=== PATIENT | male | born 1935 | race Caucasian/White ===

== ENCOUNTER → 2017-03-01 | Outpatient (CLI) | payer MEDICARE ==
--- NOTE | 2017-03-01 14:48 | KCIC ---
CHEST PA LATERAL History: Shortness of air the last few months, history of COPD, former smoker Comparison: None. Findings: There is emphysema. There is no dependent pleural fluid or pneumothorax. Heart size is within normal limits. There is linear likely atelectasis or fibrotic change of the left lung base. Impression: 1. There is emphysema. There is no lobar infiltrate. CT would be more sensitive for detection of pulmonary nodules. Electronically signed by: Grayson Hollins MD (03/01/2017 2:45 PM) [id number]
== END | disposition home or self-care (01) ==
LOC: KCIC 13:29
PROVIDERS: ATTEND Internal Medicine Pulmonary Disease
DX: J44.9 Chronic obstructive pulmonary disease, unspecified (principal); Z87.891 Personal history of nicotine dependence
CPT/HCPCS: 71020

== ENCOUNTER 2020-12-02 03:09 | Inpatient (IN) | payer MEDICARE ==
[~2020-12-02] VITALS: Ht 182.9 cm; Wt 73.2 kg
[2020-12-02 03:34] LABS: BASO % 0 % (0-3); EOS # 2.3 x10^3/uL (0.0-0.7); EOS % 12 % (0-3); HEMATOCRIT 39.5 % (39.0-53.0); HEMOGLOBIN 12.8 g/dL (13.0-17.5); LYMPH # 1.3 x10^3/uL (1.0-4.8); LYMPH % 7 % (24-48); MEAN CORPUSCULAR HEMOGLOBIN 29 pg (25-35); MEAN CORPUSCULAR HGB CONC 32 g/dL (31-37); MEAN CORPUSCULAR VOLUME 89 fL (79-100); MONO # 1.3 x10^3/uL (0.0-1.1); MONO % 7 % (0-9); NEUT # 13.7 x10^3/uL (1.8-7.7); NEUT % 74 % (31-73); PLATELET COUNT 247 x10^3/uL (140-400); RED BLOOD COUNT 4.45 x10^6/uL (4.30-5.70); RED CELL DISTRIBUTION WIDTH 14.3 % (11.5-14.5); WHITE BLOOD COUNT 18.6 x10^3/uL (4.0-11.0)
[2020-12-02] MEDS ORDERED: ALBU2.5V14 NEB (03:43)
[2020-12-02] MEDS ORDERED: GLIP5TAB10 PO (03:43)
[2020-12-02] MEDS ORDERED: METF500T16 PO (03:43)
[2020-12-02 03:50] LABS: CALCIUM 9.5 mg/dL (8.5-10.1); CREATININE 0.9 mg/dL (0.7-1.3); POTASSIUM 4.5 mmol/L (3.5-5.1)
[2020-12-02 03:52] LABS: ALBUMIN 4.2 g/dL (3.4-5.0); ALBUMIN/GLOBULIN RATIO 1.2 (1.0-1.7); MAGNESIUM 1.8 mg/dL (1.8-2.4); TOTAL BILIRUBIN 0.5 mg/dL (0.2-1.0); TOTAL PROTEIN 7.7 g/dL (6.4-8.2)
--- NOTE | 2020-12-02 03:54 | RAD ---
XR CHEST 1V History: Reason: Chest pain Comparison: March 01, 2017 Findings: Hyperinflation with emphysematous changes. No consolidation or pleural effusion. No pneumothorax. Nor mal heart size. Prior granulomatous disease within the chest. Impression: 1. Hyperinflation with emphysematous changes. No new consolidation. Electronically signed by: Carlos Laguerre DO (12/02/2020 3:52 AM) [facility] [place]
--- NOTE | 2020-12-02 04:22 | PHYS DOC ---
General Adult EDM: Chief Complaint: CHEST PAIN HPI: HPI: 85 yo M past medical history of COPD on 3 L nasal cannula and diabetes, presents the ED with complaints of "aching," nonradiating chest pain that started briefly just prior to ED arrival. Reports no associated nausea, vomiting, fever or dyspnea. No h/o CAD. Review of Systems: Review of Systems: Constitutional: Denies fever or chills. [] Eyes: Denies change in visual acuity. [] HENT: Denies nasal congestion or sore throat. [] Respiratory: Denies cough or shortness of breath. [] Cardiovascular: Denies syncope or edema. [] GI: Denies nausea, vomiting, Musculoskeletal: Denies joint pain or lower extremity swelling Integument: Denies rash or diaphoresis Neurologic: Denies headache, focal weakness or sensory changes. [] Endocrine: Denies polyuria or polydipsia. [] Lymphatic: Denies swollen glands. [] Psychiatric: Denies depression or anxiety. [] Heart Score: C/O Chest Pain: Yes HEART Score for Chest Pain: HEART Score for Chest Pain Response (Comments) Value History Slighlty/Non-Suspicious 0 ECG Nonspecific Repolarizatio 1 Age > 65 2 Risk Factors 1 or 2 Risk Factors 1 Troponin < Normal Limit 0 Total 4 Risk Factors: Risk Factors: DM, Current or recent (<one month) smoker, HTN, HLP, family history of CAD, obesity. Risk Scores: Score 0 - 3: 2.5% MACE over next 6 weeks - Discharge Home Score 4 - 6: 20.3% MACE over next 6 weeks - Admit for Clinical Observation Score 7 - 10: 72.7% MACE over next 6 weeks - Early Invasive Strategies Allergies: Allergies: Allergies Coded Allergies Type Severity Reaction Last Updated Verified No Known Drug Allergies 12/02/20 No Physical Exam: PE: Constitutional: Well developed, well nourished, no acute distress, non-toxic appearance. HENT: Normocephalic, atraumatic, Eyes: EOMI, conjunctiva normal, no discharge. Neck: Normal range of motion, supple, Cardiovascular: S1/2 present, regular rhythm Lungs & Thorax: Speaking in full sentences, bilateral equal chest rise, no tachypnea or increased work of breathing, on 3L NC Abdomen: soft, no tenderness, Skin: Warm, dry, Extremities: No tenderness, no cyanosis, Neurologic: Alert and oriented X 3, no focal deficits noted. [] Psychologic: Normal mood, calm affect Current Patient Data: Labs: Laboratory Tests Test 12/02/20 03:25 White Blood Count 18.6 x10^3/uL (4.0-11.0) H Red Blood Count 4.45 x10^6/uL (4.30-5.70) Hemoglobin 12.8 g/dL (13.0-17.5) L Hematocrit 39.5 % (39.0-53.0) Mean Corpuscular Volume 89 fL (79-100) Mean Corpuscular Hemoglobin 29 pg (25-35) Mean Corpuscular Hemoglobin Concent 32 g/dL (31-37) Red Cell Distribution Width 14.3 % (11.5-14.5) Platelet Count 247 x10^3/uL (140-400) Neutrophils (%) (Auto) 74 % (31-73) H Lymphocytes (%) (Auto) 7 % (24-48) L Monocytes (%) (Auto) 7 % (0-9) Eosinophils (%) (Auto) 12 % (0-3) H Basophils (%) (Auto) 0 % (0-3) Neutrophils # (Auto) 13.7 x10^3/uL (1.8-7.7) H Lymphocytes # (Auto) 1.3 x10^3/uL (1.0-4.8) Monocytes # (Auto) 1.3 x10^3/uL (0.0-1.1) H Eosinophils # (Auto) 2.3 x10^3/uL (0.0-0.7) H Basophils # (Auto) 0.0 x10^3/uL (0.0-0.2) Platelet Estimate Pending Sodium Level 140 mmol/L (136-145) Potassium Level 4.5 mmol/L (3.5-5.1) Chloride Level 99 mmol/L (98-107) Carbon Dioxide Level 34 mmol/L (21-32) H Anion Gap 7 (6-14) Blood Urea Nitrogen 33 mg/dL (8-26) H Creatinine 0.9 mg/dL (0.7-1.3) Estimated GFR (Cockcroft-Gault) 80.0 BUN/Creatinine Ratio 37 (6-20) H Glucose Level 141 mg/dL (70-99) H Calcium Level 9.5 mg/dL (8.5-10.1) Magnesium Level 1.8 mg/dL (1.8-2.4) Total Bilirubin 0.5 mg/dL (0.2-1.0) Aspartate Amino Transferase (AST) 21 U/L (15-37) Alanine Aminotransferase (ALT) 16 U/L (16-63) Alkaline Phosphatase 99 U/L (46-116) Troponin I Quantitative < 0.017 ng/mL (0.000-0.055) NH-Eja-U-Type Natriuretic Peptide 183 pg/mL (0-449) Total Protein 7.7 g/dL (6.4-8.2) Albumin 4.2 g/dL (3.4-5.0) Albumin/Globulin Ratio 1.2 (1.0-1.7) Lipase 20 U/L (73-393) L Laboratory Tests 12/02/20 03:25 Laboratory Tests 12/02/20 03:25 EKG: EKG: EKG with sinus rhythm, QTC prolonged 509, incomplete right bundle branch block, T wave inversion V1 through V3 which could represent strain, no obvious ST elevations or ST depressions Radiology/Procedures: Radiology/Procedures: IMAGING REPORT Signed PATIENT: JENS LEO PACCOUNT: [id number] : 1935 LOCATION: ER AGE: 85 SEX: M EXAM STATUS: REG ER ORD. PHYSICIAN: HAYLIE GOLDMAN DO REASON: cp PROCEDURE: PORTABLE CHEST 1V XR CHEST 1V History: Reason: Chest pain Comparison: March 01, 2017 Findings: Hyperinflation with emphysematous changes. No consolidation or pleural effusion. No pneumothorax. Normal heart size. Prior granulomatous disease within the chest. Impression: 1. Hyperinflation with emphysematous changes. No new consolidation. Electronically signed by: Carlos Laguerre DO (12/02/2020 3:52 AM) [facility] DICTATED and SIGNED BY: CARLOS LAGUERRE DO DATE: 12/02/20 [id number] 0 Course & Med Decision Making: Course & Med Decision Making Pertinent Labs and Imaging studies reviewed. (See chart for details) Concern for atypical chest pain and moderate risk patient, onset just prior to ED arrival. Elevated D-dimer. CTA of the chest pending. Urinalysis pending given undifferentiated leukocytosis. Due to shift change patient was signed out to oncoming physician Dr. Agarwal for further medical management disposition. Shaan Disclaimer: Shaan Disclaimer: This electronic medical record was generated, in whole or in part, using a voice recognition dictation system. Departure Departure Referrals: LAISHA GRANADOS MD (PCP) HAYLIE GOLDMAN DO Dec 02, 2020 04:22
[2020-12-02 04:32] LABS: PROTHROMBIN TIME PATIENT 13.1 SEC (11.7-14.0)
[2020-12-02 04:51] LABS: D-DIMER 3.68 ug/mlFEU (0.00-0.50)
[2020-12-02 05:17] LABS: % EOS 18 % (0-5); % LYMPHS 5 % (24-48); % MONOS 10 % (0-10); % SEGS 67 % (35-66)
[2020-12-02 05:18] LABS: PLT ESTIMATE ADEQUATE (ADEQUATE)
--- NOTE | 2020-12-02 06:07 | EKG ---
[facility] [address] [place] [address] Test Date: 2020-12-02 Test Time: 03:12:00 Pat Name: JENS LEO Department: Room: Gender: M Bead Filler: : 1935 Requested By: HAYLIE GOLDMAN Order Number: [id number] Reading MD: Measurements Intervals [place] Rate: 104 P: -90 SC: 174 QRS: 64 QRSD: 116 T: 59 QT: 382 QTc: 509 Interpretive Statements SUPRAVENTRICULAR RHYTHM RVH WITH REPOLARIZATION ABNORMALITY QRS(T) CONTOUR ABNORMALITY CONSISTENT WITH ANTEROSEPTAL INFARCT AGE UNDETERMINED ABNORMAL ECG RI6.02 No previous ECG available for comparison
[2020-12-02] MEDS ORDERED: IOHEXOL 350 MG/ML 100 ML VIAL. IV ONE (06:30)
[2020-12-02] MEDS ORDERED: CONTRAST GIVEN. MC PRN (06:45)
[2020-12-02 06:57] LABS: BILIRUBIN,URINE NEGATIVE (NEG); CLARITY,URINE CLEAR; COLOR,URINE YELLOW; NITRITE,URINE NEGATIVE (NEG); PH,URINE 5.5 (<5.0-8.0); PROTEIN,URINE NEGATIVE (NEG-TRACE); UROBILINOGEN,URINE 0.2 mg/dL (0.2 mg/dL)
[2020-12-02 07:20] LABS: BACTERIA,URINE 0 /HPF (0-FEW); RBC,URINE 0 /HPF (0-2); WBC,URINE 0 /HPF (0-4)
--- NOTE | 2020-12-02 07:35 | RAD ---
EXAMINATION: CTA CHEST CLINICAL HISTORY: Chest pain concerning for PE Technique: Spiral CT acquisition of the chest from the thoracic inlet to the upper abdomen following IV contrast with coronal and sagittal reformatted images also provided for review. 3D maximum intensi ty projection images also performed. CT Dose Reduction Employed: One or more of the following individualized dose reduction techniques wer e utilized for this examination: 1. Automated exposure control 2. Adjustment of the mA and/or kV ac cording to patient size 3. Use of iterative reconstruction technique. Comparison: Chest radiograph same day FINDINGS: Pulmonary Vasculature: No evidence of main, lobar, segmental or proximal segmental pulmonary arterial thrombus. Lung Parenchyma, Pleura, and Airways: Lower lobe predominant reticulation and mild patchy opacities, greater on the right and likely due to scarring with subsegmental atelectasis but superimposed infect ion is not excluded. Somewhat more nodular opacity measuring up to 6 mm in the lateral right lower lo be (series 3 image 109). Multiple sub-4 mm solid pulmonary nodules, some of which are calcified and l ikely related to old granulomatous disease but the noncalcified nodules are nonspecific. Emphysema. N o pleural effusion. Central airways patent. Lower Neck, Lymph Nodes, and Mediastinum: Visualized thyroid gland within normal limits. Multiple bor derline to mildly enlarged upper and lower paratracheal lymph nodes measuring up to 13 mm in short ax is, greater on the right. No axillary lymphadenopathy. Heart, Pericardium, and Thoracic Vessels: Normal heart size. Mild coronary atherosclerotic ossificati on, incompletely evaluated. Aortic atherosclerotic calcification without aneurysm. Bones and Soft Tissues: Degenerative changes in the thoracic spine. Upper Abdomen: Old calcified granulomas in the liver and spleen. IMPRESSION: No evidence of pulmonary embolus. Emphysema with likely chronic findings as described, however, superimposed infection is not entirely excluded on the right. Borderline and mildly enlarged paratracheal lymph nodes, possibly reactive. Nonspecific 6 mm nodular opacity in the right lower lobe and multiple sub-4 mm pulmonary nodules as d escribed, recommend follow-up CT chest in 6 months to evaluate for stability/resolution of the larger nodular opacity. Electronically signed by: Mario Das DO (12/02/2020 7:33 AM) [id number]
[2020-12-02] MEDS ORDERED: ACETAMINOPHEN 325 MG TABLET. PO PRN ×2 (08:30→23:45)
[2020-12-02] MEDS ORDERED: ONDANSETRON PF 4 MG/2 ML VIAL. IV PRN (08:30)
[2020-12-02] MEDS ORDERED: ASPI-886 PO (10:32)
[2020-12-02] MEDS ORDERED: SERT-266 PO (10:32)
[2020-12-02] MEDS ORDERED: VIT1CAPS17 PO (10:32)
[2020-12-02] MEDS ORDERED: BENA1TAB42 PO (10:32)
[2020-12-02] MEDS ORDERED: IPRA3AMP29 NEB (10:32)
[2020-12-02] MEDS ORDERED: GLIM1TAB7 PO (10:34)
[2020-12-02] MEDS ORDERED: AMLO-186 PO (10:34)
[2020-12-02 11:00] VITALS: BP 146/71
[2020-12-02] MEDS: IPRATRPIUM/ALBUTEROL 0.5/2.5MG 3 ML NEBU. NEB SCH ×3 (11:15→21:00)
[2020-12-02] MEDS ORDERED: methylPREDNISolone SOD SUCC PF 125 MG/2 ML VIAL. IV ONE (13:00)
[2020-12-02] MEDS: cefTRIAXone IV Push 1 GM VIAL. IVP SCH (13:21)
--- NOTE | 2020-12-02 13:29 | PDOC1 ---
History and Physical Date of Admission Date of Admission DATE: 12/02/20 TIME: 13:29 History of Present Illness History of Present Illness Mr. Rodriguez is a 85 yo M past medical history of COPD on 3 L nasal cannula and diabetes, admit from ER with acute dyspnea, cough and aches. Reports no associated nausea, vomiting, fever or dyspnea. No h/o CAD. Family History Family History: No Significant Social History Smoke: Quit ALCOHOL: none Drugs: None Current Medications Current Medications Current Medications Iohexol (Omnipaque 350 Mg/ml) 100 ml 1X ONCE IV Last administered on 12/02/20at 07:00; Start 12/02/20 at 06:30; Stop 12/02/20 at 06:31; Status DC Info (CONTRAST GIVEN -- Rx MONITORING) 1 each PRN DAILY PRN MC SEE COMMENTS; Start 12/02/20 at 06:45; Stop 12/04/20 at 06:44 Levofloxacin/ Dextrose 150 ml @ 100 mls/hr 1X ONCE IV Last administered on 12/02/20at 09:10; Start 12/02/20 at 08:30; Stop 12/02/20 at 09:59; Status DC Ondansetron HCl (Zofran) 4 mg PRN Q8HRS PRN IV NAUSEA/VOMITING; Start 12/02/20 at 08:30; Stop 12/03/20 at 08:29 Acetaminophen (Tylenol) 650 mg PRN Q4HRS PRN PO FEVER > 100.3'F; Start 12/02/20 at 08:30; Stop 12/03/20 at 08:29 Albuterol/ Ipratropium (Duoneb) 3 ml RTQID NEB Last administered on 12/02/20at 11:15; Start 12/02/20 at 12:00; Stop 12/03/20 at 11:59 Ceftriaxone Sodium (Rocephin) 1 gm Q24H IVP ; Start 12/02/20 at 14:00 Azithromycin 500 mg/Sodium Chloride 250 ml @ 250 mls/hr Q24H IV ; Start 12/02/20 at 14:00; Stop 12/05/20 at 13:59 Methylprednisolone Sodium Succinate (SOLU-Medrol 125MG VIAL) 62.5 mg Q12HR IV ; Start 12/02/20 at 21:00 Methylprednisolone Sodium Succinate (SOLU-Medrol 125MG VIAL) 125 mg 1X ONCE IV ; Start 12/02/20 at 13:00; Stop 12/02/20 at 13:01; Status DC Enoxaparin Sodium (Lovenox 40mg Syringe) 40 mg Q24H SQ ; Start 12/02/20 at 16:00 Active Scripts Active Reported Lotensin Hct 10-12.5 mg Tablet (Benazepril/Hydrochlorothiazide) 1 Each Tablet 1 Each PO DAILY Sertraline Hcl 25 Mg Tablet 25 Mg PO DAILY Aspirin Ec (Aspirin) 81 Mg Tablet.dr 1 Tab PO DAILY Preservision Lutein Softgel (Vit C/Jase Ac/Lut/Copper/Znox) 1 Each Capsule 1 Cap PO DAILY 30 Days Duoneb 0.5-3(2.5) Mg/3 Ml (Albuterol/Ipratropium) 3 Ml Ampul.neb 3 Ml NEB QID Metformin Hcl 500 Mg Tablet 1,000 Mg PO BIDWMEALS Allergies Allergies: Coded Allergies: No Known Drug Allergies (Unverified , 12/02/20) ROS General: YES: Chills, Fatigue PSYCHOLOGICAL ROS: No: Anxiety, Behavioral Disorder, Concentration difficultie, Decreased libido, Depression, Disorientation, Hallucinations, Hostility, Irritablity, Memory difficulties, Mood Swings, Obsessive thoughts, Physical abuse, Sexual abuse, Sleep disturbances, Suicidal ideation, Other Eyes: No Blurry vision, No Decreased vision, No Double vision, No Dry eyes, No Excessive tearing, No Eye Pain, No Itchy Eyes, No Loss of vision, No Photophobia, No Scotomata, No Uses contacts, No Uses glasses, No Other HEENT: No: Heacaches, Visual Changes, Hearing change, Nasal congestion, Nasal discharge, Oral lesions, Sinus pain, Sore Throat, Epistaxis, Sneezing, Snoring, Tinnitus, Vertigo, Vocal changes, Other Respiratory: YES: Cough, Shortness of breath, SOB with excertion, Sputum Changes, Tachypnea; No: Hemoptysis, Orthopnea, Pleuritic Pain, Stridor, Wheezing, Other Cardiovascular: No Chest Pain, No Palpitations, No Orthopnea, No Paroxysmal Noc. Dyspnea, No Edema, No Lt Headedness, No Other Gastrointestinal: Yes Nausea Genitourinary: No Dysuria, No Frequency, No Incontinence, No Hematuria, No Retention, No Discharge, No Urgency, No Pain, No Flank Pain, No Other, No , No , No , No , No , No , No Musculoskeletal: Yes Joint Stiffness Neurological: No Behavorial Changes, No Bowel/Bladder ControlChng, No Confusion, No Dizziness, No Gait Disturbance, No Headaches, No Impaired Coord/balance, No Memory Loss, No Numbness/Tingling, No Seizures, No Speech Problems, No Tremors, No Visual Changes, No Weakness, No Other Skin: Yes Dry Skin; No Eczema, No Hair Changes, No Lumps, No Mole Changes, No Mottling, No Nail Changes, No Pruritus, No Rash, No Skin Lesion Changes, No Other, No Acne Physical Exam General: Alert, Cooperative, mild distress HEENT: PERRLA, EOMI Lungs: Other (limited volume, with end wheeze, no rhonchi) Heart: RRR, no murmurs Abdomen: Normal bowel sounds, Soft Extremities: No edema Skin: No rashes, No significant lesion Neuro: Normal speech, Normal tone, Cranial nerves 3-12 NL Psych/Mental Status: Mental status NL, Mood NL Vitals Vitals Vital Signs Date Time Temp Pulse Resp B/P (MAP) Pulse Ox O2 Delivery O2 Flow Rate FiO2 12/02/20 11:15 99 Nasal Cannula 2.0 12/02/20 11:00 98.1 108 18 146/71 (96) 98.1 Labs Labs Laboratory Tests Test 12/02/20 03:25 12/02/20 04:05 12/02/20 05:25 12/02/20 06:50 White Blood Count 18.6 x10^3/uL (4.0-11.0) Red Blood Count 4.45 x10^6/uL (4.30-5.70) Hemoglobin 12.8 g/dL (13.0-17.5) Hematocrit 39.5 % (39.0-53.0) Mean Corpuscular Volume 89 fL (79-100) Mean Corpuscular Hemoglobin 29 pg (25-35) Mean Corpuscular Hemoglobin Concent 32 g/dL (31-37) Red Cell Distribution Width 14.3 % (11.5-14.5) Platelet Count 247 x10^3/uL (140-400) Neutrophils (%) (Auto) 74 % (31-73) Lymphocytes (%) (Auto) 7 % (24-48) Monocytes (%) (Auto) 7 % (0-9) Eosinophils (%) (Auto) 12 % (0-3) Basophils (%) (Auto) 0 % (0-3) Neutrophils # (Auto) 13.7 x10^3/uL (1.8-7.7) Lymphocytes # (Auto) 1.3 x10^3/uL (1.0-4.8) Monocytes # (Auto) 1.3 x10^3/uL (0.0-1.1) Eosinophils # (Auto) 2.3 x10^3/uL (0.0-0.7) Basophils # (Auto) 0.0 x10^3/uL (0.0-0.2) Segmented Neutrophils % 67 % (35-66) Lymphocytes % 5 % (24-48) Monocytes % 10 % (0-10) Eosinophils % 18 % (0-5) Platelet Estimate Adequate (ADEQUATE) Sodium Level 140 mmol/L (136-145) Potassium Level 4.5 mmol/L (3.5-5.1) Chloride Level 99 mmol/L (98-107) Carbon Dioxide Level 34 mmol/L (21-32) Anion Gap 7 (6-14) Blood Urea Nitrogen 33 mg/dL (8-26) Creatinine 0.9 mg/dL (0.7-1.3) Estimated GFR (Cockcroft-Gault) 80.0 BUN/Creatinine Ratio 37 (6-20) Glucose Level 141 mg/dL (70-99) Calcium Level 9.5 mg/dL (8.5-10.1) Magnesium Level 1.8 mg/dL (1.8-2.4) Total Bilirubin 0.5 mg/dL (0.2-1.0) Aspartate Amino Transf (AST/SGOT) 21 U/L (15-37) Alanine Aminotransferase (ALT/SGPT) 16 U/L (16-63) Alkaline Phosphatase 99 U/L (46-116) Troponin I Quantitative < 0.017 ng/mL (0.000-0.055) < 0.017 ng/mL (0.000-0.055) PJ-Cyn-J-Type Natriuretic Peptide 183 pg/mL (0-449) Total Protein 7.7 g/dL (6.4-8.2) Albumin 4.2 g/dL (3.4-5.0) Albumin/Globulin Ratio 1.2 (1.0-1.7) Lipase 20 U/L (73-393) Prothrombin Time 13.1 SEC (11.7-14.0) Prothromb Time International Ratio 1.0 (0.8-1.1) D-Dimer (Solange) 3.68 ug/mlFEU (0.00-0.50) Urine Collection Type Void Urine Color Yellow Urine Clarity Clear Urine pH 5.5 (<5.0-8.0) Urine Specific Arley 1.025 (1.000-1.030) Urine Protein Negative mg/dL (NEG-TRACE) Urine Glucose (UA) Negative mg/dL (NEG) Urine Ketones (Stick) Trace mg/dL (NEG) Urine Blood Negative (NEG) Urine Nitrite Negative (NEG) Urine Bilirubin Negative (NEG) Urine Urobilinogen Dipstick 0.2 mg/dL (0.2 mg/dL) Urine Leukocyte Esterase Negative (NEG) Urine RBC 0 /HPF (0-2) Urine WBC 0 /HPF (0-4) Urine Squamous Epithelial Cells Occ /LPF Urine Bacteria 0 /HPF (0-FEW) Urine Mucus Mod /LPF Test 12/02/20 08:01 12/02/20 11:20 Troponin I Quantitative < 0.017 ng/mL (0.000-0.055) < 0.017 ng/mL (0.000-0.055) Laboratory Tests Test 12/02/20 03:25 12/02/20 04:05 12/02/20 05:25 12/02/20 06:50 White Blood Count 18.6 x10^3/uL (4.0-11.0) Red Blood Count 4.45 x10^6/uL (4.30-5.70) Hemoglobin 12.8 g/dL (13.0-17.5) Hematocrit 39.5 % (39.0-53.0) Mean Corpuscular Volume 89 fL (79-100) Mean Corpuscular Hemoglobin 29 pg (25-35) Mean Corpuscular Hemoglobin Concent 32 g/dL (31-37) Red Cell Distribution Width 14.3 % (11.5-14.5) Platelet Count 247 x10^3/uL (140-400) Neutrophils (%) (Auto) 74 % (31-73) Lymphocytes (%) (Auto) 7 % (24-48) Monocytes (%) (Auto) 7 % (0-9) Eosinophils (%) (Auto) 12 % (0-3) Basophils (%) (Auto) 0 % (0-3) Neutrophils # (Auto) 13.7 x10^3/uL (1.8-7.7) Lymphocytes # (Auto) 1.3 x10^3/uL (1.0-4.8) Monocytes # (Auto) 1.3 x10^3/uL (0.0-1.1) Eosinophils # (Auto) 2.3 x10^3/uL (0.0-0.7) Basophils # (Auto) 0.0 x10^3/uL (0.0-0.2) Segmented Neutrophils % 67 % (35-66) Lymphocytes % 5 % (24-48) Monocytes % 10 % (0-10) Eosinophils % 18 % (0-5) Platelet Estimate Adequate (ADEQUATE) Sodium Level 140 mmol/L (136-145) Potassium Level 4.5 mmol/L (3.5-5.1) Chloride Level 99 mmol/L (98-107) Carbon Dioxide Level 34 mmol/L (21-32) Anion Gap 7 (6-14) Blood Urea Nitrogen 33 mg/dL (8-26) Creatinine 0.9 mg/dL (0.7-1.3) Estimated GFR (Cockcroft-Gault) 80.0 BUN/Creatinine Ratio 37 (6-20) Glucose Level 141 mg/dL (70-99) Calcium Level 9.5 mg/dL (8.5-10.1) Magnesium Level 1.8 mg/dL (1.8-2.4) Total Bilirubin 0.5 mg/dL (0.2-1.0) Aspartate Amino Transf (AST/SGOT) 21 U/L (15-37) Alanine Aminotransferase (ALT/SGPT) 16 U/L (16-63) Alkaline Phosphatase 99 U/L (46-116) Troponin I Quantitative < 0.017 ng/mL (0.000-0.055) < 0.017 ng/mL (0.000-0.055) XU-Dbe-C-Type Natriuretic Peptide 183 pg/mL (0-449) Total Protein 7.7 g/dL (6.4-8.2) Albumin 4.2 g/dL (3.4-5.0) Albumin/Globulin Ratio 1.2 (1.0-1.7) Lipase 20 U/L (73-393) Prothrombin Time 13.1 SEC (11.7-14.0) Prothromb Time International Ratio 1.0 (0.8-1.1) D-Dimer (Solange) 3.68 ug/mlFEU (0.00-0.50) Urine Collection Type Void Urine Color Yellow Urine Clarity Clear Urine pH 5.5 (<5.0-8.0) Urine Specific Arley 1.025 (1.000-1.030) Urine Protein Negative mg/dL (NEG-TRACE) Urine Glucose (UA) Negative mg/dL (NEG) Urine Ketones (Stick) Trace mg/dL (NEG) Urine Blood Negative (NEG) Urine Nitrite Negative (NEG) Urine Bilirubin Negative (NEG) Urine Urobilinogen Dipstick 0.2 mg/dL (0.2 mg/dL) Urine Leukocyte Esterase Negative (NEG) Urine RBC 0 /HPF (0-2) Urine WBC 0 /HPF (0-4) Urine Squamous Epithelial Cells Occ /LPF Urine Bacteria 0 /HPF (0-FEW) Urine Mucus Mod /LPF Test 12/02/20 08:01 12/02/20 11:20 Troponin I Quantitative < 0.017 ng/mL (0.000-0.055) < 0.017 ng/mL (0.000-0.055) VTE Prophylaxis Ordered VTE Prophylaxis Devices: Yes VTE Pharmacological Prophylaxi: Yes Assessment/Plan Assessment/Plan sepsis right-sided pneumonia, suspect gram-negative - broad abx x2, nebs COPD, chronic hypercarbic respiratory failure with acute bronchitis, will geet PULM consult, nebs, steroids, malnutrition, weight loss, htn Dm2 Justifications for Admission Other Justification LULA ALFARO MD Dec 02, 2020 13:29
[2020-12-02] MEDS: AZITHROMYCIN 500 MG in IV NORMAL SALINE 250ML 250 ML IV SCH (13:31)
[2020-12-02] MEDS: ASPIRIN ENTERIC COATED 81 MG TABLET.DR. PO SCH (14:43)
[2020-12-02] MEDS: SERTRALINE 25 MG TABLET. PO SCH (14:43)
[2020-12-02] MEDS: hydroCHLOROthiazide 12.5 MG CAPSULE PO SCH (14:43)
[2020-12-02] MEDS: MULTIVITAMIN I-VITE TABLET. PO SCH (14:43)
[2020-12-02] MEDS: LISINOPRIL 10 MG TABLET PO SCH (14:44)
[2020-12-02 15:00] VITALS: BP 116/59
[2020-12-02] MEDS: ENOXAPARIN 40 MG/0.4 ML SYRINGE. SQ SCH (17:02)
[2020-12-02] MEDS ORDERED: DEXTROSE 50% 25 GM / 50ML DISP.SYRIN. IV PRN (17:30)
[2020-12-02 17:31] LABS: INFLUENZA A PATIENT NEGATIVE (NEGATIVE); INFLUENZA B PATIENT NEGATIVE (NEGATIVE)
[2020-12-02] MEDS: INSULIN LISPRO 300 UNITS/3 ML VIAL. SQ SCH ×2 (18:02→18:03)
[2020-12-02 19:00] VITALS: BP 102/58
[2020-12-02] MEDS: INSULIN GLARGINE SYRINGE. SQ SCH (21:00)
[2020-12-02] MEDS: methylPREDNISolone SOD SUCC PF 125 MG/2 ML VIAL. IV SCH (21:33)
[2020-12-02 23:00] VITALS: BP 109/48
[2020-12-02] MEDS ORDERED: diphenhydrAMINE HCL 25 MG CAPSULE PO PRN (23:15)
--- NOTE | 2020-12-02 23:23 | CONS ---
DATE OF CONSULTATION: 12/02/2020 ATTENDING PHYSICIAN: Dr. Cha Lay. REASON FOR CONSULTATION: The patient is seen in pulmonary consultation at the request of Dr. Lay for shortness of air. HISTORY OF PRESENT ILLNESS: The patient is an 85-year-old with chronic COPD, chronic respiratory failure, normally on 3 liters of oxygen supplementation. He woke up with chest pain and shortness of breath, achiness. His was concerned. He presented to the Emergency Room. His worked up in the Emergency Room, underwent a CT angiogram. CT angiogram revealed no evidence of PE. There was emphysema with chronic changes. There was also superimposed right-sided infiltrate. He has a large paratracheal lymph node. There was also a 6-mm nodular opacity in the right lower lobe. The patient denies fever or chills. He is up to date on COVID-19 vaccination. He has been losing some weight. PAST MEDICAL HISTORY: COPD; diabetes; hypertension; tobacco-dependence in remission, quit in 1991. No prior history of DVT or pulmonary embolism. PAST SURGICAL HISTORY: No recent major surgeries. ALLERGIES: No known drug allergies. SOCIAL HISTORY: He has worked for the [employer] in the past. He is currently retired. Quit tobacco in 1991. Lives with his . REVIEW OF SYSTEMS: CONSTITUTIONAL: No fever or chills. EYES: No change in visual acuity. HENT: No nasal congestion or sore throat. PULMONARY: As indicated above. CARDIOVASCULAR: No chest pain or pressure. GASTROINTESTINAL: No nausea, vomiting, or diarrhea. GENITOURINARY: No dysuria or frequency. MUSCULOSKELETAL: No localized muscle aches or joint pains. SKIN: No new skin rashes. NEUROLOGIC: No headaches, diplopia or blurred vision. Labs were reviewed in the Emergency Department. He was given IV Levaquin. PHYSICAL EXAMINATION: GENERAL: The patient appears to be his stated age, no respiratory distress, currently on 3 liters of oxygen supplementation. HEENT: Eyes: The sclerae were nonicteric. NECK: Jugular venous distention was not elevated. No lymphadenopathy. CHEST: Full expansion. LUNGS: Rales on the right with prolonged expiratory phase and wheezing. CARDIOVASCULAR: Regular rate and rhythm with S1, S2, no S3. ABDOMEN: Soft, nontender, nondistended. EXTREMITIES: No clubbing, cyanosis or edema. LABORATORY DATA: Reviewed. White count was elevated. Hemoglobin and hematocrit were noted. Electrolytes were noted. D-dimer was not elevated. Troponin level was not elevated. BUN and creatinine were normal. IMPRESSION: 1. Abnormal CT chest revealing right-sided infiltrate compatible with pneumonia, suspect gram-negative, possibly gram-positive. 2. Leukocytosis secondary to above. 3. Chronic respiratory failure. 4. Acute exacerbation of chronic obstructive pulmonary disease. 5. Elevated D-dimer, nonspecific. CT angiogram was negative for pulmonary embolism. 6. Mild lymphadenopathy in the paratracheal region along with a 6-mm nodular opacity in the right lower lobe. 7. Weight loss. 8. Hypertension. 9. Type 2 diabetes. 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 PLAN: 1. We will continue current support with IV antibiotics. 2. Nebulized treatments. 3. Steroids. 4. Repeat CT chest in 2 months. 5. Follow up with PCP regarding significant weight loss. There is no evidence of malignancy in the chest at this time. 6. DVT, GI prophylaxis. I do appreciate the privilege in sharing in the patient's care. ANUM/SHELBY DR: Rosie TID: [id number]
[2020-12-03 03:34] VITALS: BP 108/63
[2020-12-03 05:19] LABS: CALCIUM 8.9 mg/dL (8.5-10.1); GFR 70.8
[2020-12-03 07:00] VITALS: BP 101/62
[2020-12-03] MEDS: IPRATRPIUM/ALBUTEROL 0.5/2.5MG 3 ML NEBU. NEB SCH ×4 (07:48→20:26)
[2020-12-03] MEDS: ASPIRIN ENTERIC COATED 81 MG TABLET.DR. PO SCH (08:05)
[2020-12-03] MEDS: LISINOPRIL 10 MG TABLET PO SCH (08:05)
[2020-12-03] MEDS: MULTIVITAMIN I-VITE TABLET. PO SCH (08:06)
[2020-12-03] MEDS: hydroCHLOROthiazide 12.5 MG CAPSULE PO SCH (08:06)
[2020-12-03] MEDS: SERTRALINE 25 MG TABLET. PO SCH (08:06)
[2020-12-03] MEDS: methylPREDNISolone SOD SUCC PF 125 MG/2 ML VIAL. IV SCH ×2 (08:07→21:23)
[2020-12-03] MEDS: INSULIN LISPRO 300 UNITS/3 ML VIAL. SQ SCH ×6 (08:16→17:16)
[2020-12-03 09:14] LABS: BASO % 0 % (0-3); EOS % 0 % (0-3); HEMATOCRIT 37.5 % (39.0-53.0); HEMOGLOBIN 12.3 g/dL (13.0-17.5); LYMPH # 0.6 x10^3/uL (1.0-4.8); LYMPH % 5 % (24-48); MEAN CORPUSCULAR HEMOGLOBIN 29 pg (25-35); MEAN CORPUSCULAR HGB CONC 33 g/dL (31-37); MEAN CORPUSCULAR VOLUME 88 fL (79-100); MONO # 0.4 x10^3/uL (0.0-1.1); MONO % 3 % (0-9); NEUT # 11.3 x10^3/uL (1.8-7.7); NEUT % 92 % (31-73); PLATELET COUNT 234 x10^3/uL (140-400); RED BLOOD COUNT 4.25 x10^6/uL (4.30-5.70); RED CELL DISTRIBUTION WIDTH 14.2 % (11.5-14.5); WHITE BLOOD COUNT 12.3 x10^3/uL (4.0-11.0)
[2020-12-03 11:03] VITALS: BP 85/52
--- NOTE | 2020-12-03 12:17 | PDOC ---
PULMONARY PROGRESS NOTES DATE: 12/03/20 TIME: 12:17 Subjective Pt. is resting on 2 liters NC no overnight events Vitals Vital Signs Date Time Temp Pulse Resp B/P (MAP) Pulse Ox O2 Delivery O2 Flow Rate FiO2 12/03/20 11:47 Nasal Cannula 2.0 12/03/20 11:03 98.0 83 20 85/52 (63) 98 98.0 ROS: No Nausea, No Chest Pain, No Abdominal Pain, No Increase Cough General: Alert, Oriented X4 Lungs: Clear Cardiovascular: S1 Abdomen: Soft Neuro Exam: Alert Skin: Warm Labs Laboratory Tests Test 12/02/20 03:25 12/02/20 04:05 12/02/20 05:25 12/02/20 06:50 White Blood Count 18.6 x10^3/uL (4.0-11.0) Red Blood Count 4.45 x10^6/uL (4.30-5.70) Hemoglobin 12.8 g/dL (13.0-17.5) Hematocrit 39.5 % (39.0-53.0) Mean Corpuscular Volume 89 fL (79-100) Mean Corpuscular Hemoglobin 29 pg (25-35) Mean Corpuscular Hemoglobin Concent 32 g/dL (31-37) Red Cell Distribution Width 14.3 % (11.5-14.5) Platelet Count 247 x10^3/uL (140-400) Neutrophils (%) (Auto) 74 % (31-73) Lymphocytes (%) (Auto) 7 % (24-48) Monocytes (%) (Auto) 7 % (0-9) Eosinophils (%) (Auto) 12 % (0-3) Basophils (%) (Auto) 0 % (0-3) Neutrophils # (Auto) 13.7 x10^3/uL (1.8-7.7) Lymphocytes # (Auto) 1.3 x10^3/uL (1.0-4.8) Monocytes # (Auto) 1.3 x10^3/uL (0.0-1.1) Eosinophils # (Auto) 2.3 x10^3/uL (0.0-0.7) Basophils # (Auto) 0.0 x10^3/uL (0.0-0.2) Segmented Neutrophils % 67 % (35-66) Lymphocytes % 5 % (24-48) Monocytes % 10 % (0-10) Eosinophils % 18 % (0-5) Platelet Estimate Adequate (ADEQUATE) Sodium Level 140 mmol/L (136-145) Potassium Level 4.5 mmol/L (3.5-5.1) Chloride Level 99 mmol/L (98-107) Carbon Dioxide Level 34 mmol/L (21-32) Anion Gap 7 (6-14) Blood Urea Nitrogen 33 mg/dL (8-26) Creatinine 0.9 mg/dL (0.7-1.3) Estimated GFR (Cockcroft-Gault) 80.0 BUN/Creatinine Ratio 37 (6-20) Glucose Level 141 mg/dL (70-99) Calcium Level 9.5 mg/dL (8.5-10.1) Magnesium Level 1.8 mg/dL (1.8-2.4) Total Bilirubin 0.5 mg/dL (0.2-1.0) Aspartate Amino Transf (AST/SGOT) 21 U/L (15-37) Alanine Aminotransferase (ALT/SGPT) 16 U/L (16-63) Alkaline Phosphatase 99 U/L (46-116) Troponin I Quantitative < 0.017 ng/mL (0.000-0.055) < 0.017 ng/mL (0.000-0.055) OI-Fsl-T-Type Natriuretic Peptide 183 pg/mL (0-449) Total Protein 7.7 g/dL (6.4-8.2) Albumin 4.2 g/dL (3.4-5.0) Albumin/Globulin Ratio 1.2 (1.0-1.7) Lipase 20 U/L (73-393) Prothrombin Time 13.1 SEC (11.7-14.0) Prothromb Time International Ratio 1.0 (0.8-1.1) D-Dimer (Solange) 3.68 ug/mlFEU (0.00-0.50) Urine Collection Type Void Urine Color Yellow Urine Clarity Clear Urine pH 5.5 (<5.0-8.0) Urine Specific [place] 1.025 (1.000-1.030) Urine Protein Negative mg/dL (NEG-TRACE) Urine Glucose (UA) Negative mg/dL (NEG) Urine Ketones (Stick) Trace mg/dL (NEG) Urine Blood Negative (NEG) Urine Nitrite Negative (NEG) Urine Bilirubin Negative (NEG) Urine Urobilinogen Dipstick 0.2 mg/dL (0.2 mg/dL) Urine Leukocyte Esterase Negative (NEG) Urine RBC 0 /HPF (0-2) Urine WBC 0 /HPF (0-4) Urine Squamous Epithelial Cells Occ /LPF Urine Bacteria 0 /HPF (0-FEW) Urine Mucus Mod /LPF Test 12/02/20 08:01 12/02/20 11:20 12/02/20 16:12 12/02/20 17:25 Troponin I Quantitative < 0.017 ng/mL (0.000-0.055) < 0.017 ng/mL (0.000-0.055) Influenza Type A Antigen Negative (NEGATIVE) Influenza Type B Antigen Negative (NEGATIVE) Glucose (Fingerstick) 344 mg/dL (70-99) Test 12/02/20 21:26 12/03/20 04:15 12/03/20 07:08 12/03/20 08:55 Glucose (Fingerstick) 97 mg/dL (70-99) 263 mg/dL (70-99) Sodium Level 134 mmol/L (136-145) Potassium Level 4.0 mmol/L (3.5-5.1) Chloride Level 95 mmol/L (98-107) Carbon Dioxide Level 31 mmol/L (21-32) Anion Gap 8 (6-14) Blood Urea Nitrogen 31 mg/dL (8-26) Creatinine 1.0 mg/dL (0.7-1.3) Estimated GFR (Cockcroft-Gault) 70.8 Glucose Level 306 mg/dL (70-99) Calcium Level 8.9 mg/dL (8.5-10.1) White Blood Count 12.3 x10^3/uL (4.0-11.0) Red Blood Count 4.25 x10^6/uL (4.30-5.70) Hemoglobin 12.3 g/dL (13.0-17.5) Hematocrit 37.5 % (39.0-53.0) Mean Corpuscular Volume 88 fL (79-100) Mean Corpuscular Hemoglobin 29 pg (25-35) Mean Corpuscular Hemoglobin Concent 33 g/dL (31-37) Red Cell Distribution Width 14.2 % (11.5-14.5) Platelet Count 234 x10^3/uL (140-400) Neutrophils (%) (Auto) 92 % (31-73) Lymphocytes (%) (Auto) 5 % (24-48) Monocytes (%) (Auto) 3 % (0-9) Eosinophils (%) (Auto) 0 % (0-3) Basophils (%) (Auto) 0 % (0-3) Neutrophils # (Auto) 11.3 x10^3/uL (1.8-7.7) Lymphocytes # (Auto) 0.6 x10^3/uL (1.0-4.8) Monocytes # (Auto) 0.4 x10^3/uL (0.0-1.1) Eosinophils # (Auto) 0.0 x10^3/uL (0.0-0.7) Basophils # (Auto) 0.0 x10^3/uL (0.0-0.2) Test 12/03/20 10:31 Glucose (Fingerstick) 277 mg/dL (70-99) Laboratory Tests Test 12/02/20 16:12 12/02/20 17:25 12/02/20 21:26 12/03/20 04:15 Influenza Type A Antigen Negative (NEGATIVE) Influenza Type B Antigen Negative (NEGATIVE) Glucose (Fingerstick) 344 mg/dL (70-99) 97 mg/dL (70-99) Sodium Level 134 mmol/L (136-145) Potassium Level 4.0 mmol/L (3.5-5.1) Chloride Level 95 mmol/L (98-107) Carbon Dioxide Level 31 mmol/L (21-32) Anion Gap 8 (6-14) Blood Urea Nitrogen 31 mg/dL (8-26) Creatinine 1.0 mg/dL (0.7-1.3) Estimated GFR (Cockcroft-Gault) 70.8 Glucose Level 306 mg/dL (70-99) Calcium Level 8.9 mg/dL (8.5-10.1) Test 12/03/20 07:08 12/03/20 08:55 12/03/20 10:31 Glucose (Fingerstick) 263 mg/dL (70-99) 277 mg/dL (70-99) White Blood Count 12.3 x10^3/uL (4.0-11.0) Red Blood Count 4.25 x10^6/uL (4.30-5.70) Hemoglobin 12.3 g/dL (13.0-17.5) Hematocrit 37.5 % (39.0-53.0) Mean Corpuscular Volume 88 fL (79-100) Mean Corpuscular Hemoglobin 29 pg (25-35) Mean Corpuscular Hemoglobin Concent 33 g/dL (31-37) Red Cell Distribution Width 14.2 % (11.5-14.5) Platelet Count 234 x10^3/uL (140-400) Neutrophils (%) (Auto) 92 % (31-73) Lymphocytes (%) (Auto) 5 % (24-48) Monocytes (%) (Auto) 3 % (0-9) Eosinophils (%) (Auto) 0 % (0-3) Basophils (%) (Auto) 0 % (0-3) Neutrophils # (Auto) 11.3 x10^3/uL (1.8-7.7) Lymphocytes # (Auto) 0.6 x10^3/uL (1.0-4.8) Monocytes # (Auto) 0.4 x10^3/uL (0.0-1.1) Eosinophils # (Auto) 0.0 x10^3/uL (0.0-0.7) Basophils # (Auto) 0.0 x10^3/uL (0.0-0.2) Medications Active Scripts Medications Dose Route/Sig Max Daily Dose Days Date Category Lotensin Hct 10-12.5 mg Tablet (Benazepril/Hydrochlorothiazide) 1 Each Tablet 1 Each PO DAILY 12/02/20 Reported Sertraline Hcl 25 Mg Tablet 25 Mg PO DAILY 12/02/20 Reported Aspirin Ec (Aspirin) 81 Mg Tablet.dr 1 Tab PO DAILY 12/02/20 Reported Preservision Lutein Softgel (Vit C/Jase Ac/Lut/Copper/Znox) 1 Each Capsule 1 Cap PO DAILY 30 12/02/20 Reported Duoneb 0.5-3(2.5) Mg/3 Ml (Albuterol/Ipratropium) 3 Ml Ampul.neb 3 Ml NEB QID 12/02/20 Reported Metformin Hcl 500 Mg Tablet 1,000 Mg PO BIDWMEALS 12/02/20 Reported Comments CTA chest IMPRESSION: No evidence of pulmonary embolus. Emphysema with likely chronic findings as described, however, superimposed infection is not entirely excluded on the right. Borderline and mildly enlarged paratracheal lymph nodes, possibly reactive. Nonspecific 6 mm nodular opacity in the right lower lobe and multiple sub-4 mm pulmonary nodules as described, recommend follow-up CT chest in 6 months to evaluate for stability/resolution of the larger nodular opacity. Impression . IMPRESSION: 1. Abnormal CT chest revealing right-sided infiltrate compatible with pneumonia, suspect gram-negative, possibly gram-positive. 2. Leukocytosis secondary to above. 3. Chronic respiratory failure. 4. Acute exacerbation of chronic obstructive pulmonary disease. 5. Elevated D-dimer, nonspecific. CT angiogram was negative for pulmonary embolism. 6. Mild lymphadenopathy in the paratracheal region along with a 6-mm nodular opacity in the right lower lobe. 7. Weight loss. 8. Hypertension. 9. Type 2 diabetes. 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 Plan . PLAN 12/03/20 Continue supplemental oxygen to keep sats above 92% Continue ABX: rocephin and azithro NEBS Continue steroids CTA chest Neg for PE, reviewed ---Repeat CT chest in 2 months. DVT/GI prophylaxis;lovenox PLAN: 12/02/20 1. We will continue current support with IV antibiotics. 2. Nebulized treatments. 3. Steroids. 4. Repeat CT chest in 2 months. 5. Follow up with PCP regarding significant weight loss. There is no evidence of malignancy in the chest at this time. 6. DVT, GI prophylaxis. ZAKI SHOOK MD Dec 03, 2020 12:17
--- NOTE | 2020-12-03 13:17 | PDOC ---
[employer] PROGRESS NOTE Date of Service DOS: DATE: 12/03/20 TIME: 13:16 Chief Complaint Chief Complaint sepsis right-sided pneumonia, suspect gram-negative - broad abx x2, nebs COPD, chronic hypercarbic respiratory failure with acute bronchitis, will geet PULM consult, nebs, steroids, malnutrition, weight loss, htn Dm2 History of Present Illness History of Present Illness feels imrpoved, str better, sitting on edge of bed still tachycardia Vitals/I&O Vitals/I&O: Vital Signs Date Time Temp Pulse Resp B/P (MAP) Pulse Ox O2 Delivery O2 Flow Rate FiO2 12/03/20 11:47 Nasal Cannula 2.0 12/03/20 11:03 98.0 83 20 85/52 (63) 98 98.0 Physical Exam General: Alert, Cooperative, mild distress Abdomen: Normal bowel sounds, Soft Extremities: No edema Skin: No rashes, No significant lesion Labs Labs: Laboratory Tests Test 12/02/20 16:12 12/02/20 17:25 12/02/20 21:26 12/03/20 04:15 Influenza Type A Antigen Negative (NEGATIVE) Influenza Type B Antigen Negative (NEGATIVE) Glucose (Fingerstick) 344 mg/dL (70-99) 97 mg/dL (70-99) Sodium Level 134 mmol/L (136-145) Potassium Level 4.0 mmol/L (3.5-5.1) Chloride Level 95 mmol/L (98-107) Carbon Dioxide Level 31 mmol/L (21-32) Anion Gap 8 (6-14) Blood Urea Nitrogen 31 mg/dL (8-26) Creatinine 1.0 mg/dL (0.7-1.3) Estimated GFR (Cockcroft-Gault) 70.8 Glucose Level 306 mg/dL (70-99) Calcium Level 8.9 mg/dL (8.5-10.1) Test 12/03/20 07:08 12/03/20 08:55 12/03/20 10:31 Glucose (Fingerstick) 263 mg/dL (70-99) 277 mg/dL (70-99) White Blood Count 12.3 x10^3/uL (4.0-11.0) Red Blood Count 4.25 x10^6/uL (4.30-5.70) Hemoglobin 12.3 g/dL (13.0-17.5) Hematocrit 37.5 % (39.0-53.0) Mean Corpuscular Volume 88 fL (79-100) Mean Corpuscular Hemoglobin 29 pg (25-35) Mean Corpuscular Hemoglobin Concent 33 g/dL (31-37) Red Cell Distribution Width 14.2 % (11.5-14.5) Platelet Count 234 x10^3/uL (140-400) Neutrophils (%) (Auto) 92 % (31-73) Lymphocytes (%) (Auto) 5 % (24-48) Monocytes (%) (Auto) 3 % (0-9) Eosinophils (%) (Auto) 0 % (0-3) Basophils (%) (Auto) 0 % (0-3) Neutrophils # (Auto) 11.3 x10^3/uL (1.8-7.7) Lymphocytes # (Auto) 0.6 x10^3/uL (1.0-4.8) Monocytes # (Auto) 0.4 x10^3/uL (0.0-1.1) Eosinophils # (Auto) 0.0 x10^3/uL (0.0-0.7) Basophils # (Auto) 0.0 x10^3/uL (0.0-0.2) Assessment and Plan Assessmemt and Plan Problems Medical Problems: (1) Chest pain Status: Acute Comment Review of Relevant I have reviewed the following items abby (where applicable) has been applied. Medications: Current Medications Medications (Trade) Dose Ordered Sig/Yuval Route PRN Reason Start Time Stop Time Status Last Admin Dose Admin Ceftriaxone Sodium (Rocephin) 1 gm Q24H IVP 12/02/20 14:00 12/02/20 13:21 Azithromycin 500 mg/Sodium Chloride 250 ml @ 250 mls/hr Q24H IV 12/02/20 14:00 12/05/20 13:59 12/02/20 13:31 Methylprednisolone Sodium Succinate (SOLU-Medrol 125MG VIAL) 62.5 mg Q12HR IV 12/02/20 21:00 12/03/20 08:07 Enoxaparin Sodium (Lovenox 40mg Syringe) 40 mg Q24H SQ 12/02/20 16:00 12/02/20 17:02 Aspirin (Ecotrin) 81 mg DAILY PO 12/02/20 14:00 12/03/20 08:05 Albuterol/ Ipratropium (Duoneb) 3 ml RTQID NEB 12/02/20 16:00 12/03/20 11:45 Sertraline HCl (Zoloft) 25 mg DAILY PO 12/02/20 14:00 12/03/20 08:06 Hydrochlorothiazide (Microzide) 12.5 mg DAILY PO 12/02/20 14:00 12/02/20 14:43 Multivitamins/ Minerals (I-Jase) 1 tab DAILY PO 12/02/20 14:00 12/03/20 08:06 Lisinopril (Prinivil) 10 mg DAILY PO 12/02/20 14:00 12/02/20 14:44 Insulin Human Lispro (HumaLOG) 0-7 UNITS TIDWMEALS SQ 12/02/20 17:30 12/03/20 11:55 Insulin Human Lispro (HumaLOG) 4 units TIDAC SQ 12/02/20 17:30 12/03/20 11:54 Diphenhydramine HCl (Benadryl) 25 mg PRN QHS PRN PO INSOMNIA 12/02/20 23:15 12/02/20 23:44 Acetaminophen (Tylenol) 650 mg PRN Q6HRS PRN PO MILD PAIN / TEMP > 100.3'F 12/02/20 23:45 12/02/20 23:50 Justifications for Admission Other Justification LULA ALFARO MD Dec 03, 2020 13:17
[2020-12-03] MEDS: cefTRIAXone IV Push 1 GM VIAL. IVP SCH (14:41)
[2020-12-03] MEDS: AZITHROMYCIN 500 MG in IV NORMAL SALINE 250ML 250 ML IV SCH (14:42)
[2020-12-03 15:28] VITALS: BP 96/60
[2020-12-03] MEDS: ENOXAPARIN 40 MG/0.4 ML SYRINGE. SQ SCH (16:17)
[2020-12-03 19:00] VITALS: BP_SYST 100; BP_SYST 118; BP_DIAS 46; BP_DIAS 56
[2020-12-03] MEDS: INSULIN GLARGINE SYRINGE. SQ SCH (21:12)
[2020-12-03] MEDS: LACTOBACILLUS RHAMNOSUS GG 1 CAPSULE. PO SCH (21:23)
[2020-12-03 23:00] VITALS: BP 100/46
[2020-12-04 03:20] VITALS: BP 107/49
[2020-12-04 07:00] VITALS: BP 133/61
[2020-12-04] MEDS: IPRATRPIUM/ALBUTEROL 0.5/2.5MG 3 ML NEBU. NEB SCH ×4 (07:53→20:00)
--- NOTE | 2020-12-04 08:02 | PDOC ---
PULMONARY PROGRESS NOTES DATE: 12/04/20 TIME: 08:02 Subjective Pt. is resting on 2 liters NC States he is feeling wonderful Denies any shortness of breath or cough sitting edge of bed enjoying breakfast no overnight events Vitals Vital Signs Date Time Temp Pulse Resp B/P (MAP) Pulse Ox O2 Delivery O2 Flow Rate FiO2 12/04/20 07:54 98 Nasal Cannula 2.0 12/04/20 03:20 98.4 99 19 107/49 (68) 98.4 ROS: No Nausea, No Chest Pain, No Abdominal Pain, No Increase Cough General: Alert, Oriented X4 Lungs: Clear Cardiovascular: S1 Abdomen: Soft Neuro Exam: Alert Skin: Warm Labs Laboratory Tests Test 12/02/20 11:20 12/02/20 16:12 12/02/20 17:25 12/02/20 21:26 Troponin I Quantitative < 0.017 ng/mL (0.000-0.055) Influenza Type A Antigen Negative (NEGATIVE) Influenza Type B Antigen Negative (NEGATIVE) Glucose (Fingerstick) 344 mg/dL (70-99) 97 mg/dL (70-99) Test 12/03/20 04:15 12/03/20 07:08 12/03/20 08:55 12/03/20 10:31 Sodium Level 134 mmol/L (136-145) Potassium Level 4.0 mmol/L (3.5-5.1) Chloride Level 95 mmol/L (98-107) Carbon Dioxide Level 31 mmol/L (21-32) Anion Gap 8 (6-14) Blood Urea Nitrogen 31 mg/dL (8-26) Creatinine 1.0 mg/dL (0.7-1.3) Estimated GFR (Cockcroft-Gault) 70.8 Glucose Level 306 mg/dL (70-99) Calcium Level 8.9 mg/dL (8.5-10.1) Glucose (Fingerstick) 263 mg/dL (70-99) 277 mg/dL (70-99) White Blood Count 12.3 x10^3/uL (4.0-11.0) Red Blood Count 4.25 x10^6/uL (4.30-5.70) Hemoglobin 12.3 g/dL (13.0-17.5) Hematocrit 37.5 % (39.0-53.0) Mean Corpuscular Volume 88 fL (79-100) Mean Corpuscular Hemoglobin 29 pg (25-35) Mean Corpuscular Hemoglobin Concent 33 g/dL (31-37) Red Cell Distribution Width 14.2 % (11.5-14.5) Platelet Count 234 x10^3/uL (140-400) Neutrophils (%) (Auto) 92 % (31-73) Lymphocytes (%) (Auto) 5 % (24-48) Monocytes (%) (Auto) 3 % (0-9) Eosinophils (%) (Auto) 0 % (0-3) Basophils (%) (Auto) 0 % (0-3) Neutrophils # (Auto) 11.3 x10^3/uL (1.8-7.7) Lymphocytes # (Auto) 0.6 x10^3/uL (1.0-4.8) Monocytes # (Auto) 0.4 x10^3/uL (0.0-1.1) Eosinophils # (Auto) 0.0 x10^3/uL (0.0-0.7) Basophils # (Auto) 0.0 x10^3/uL (0.0-0.2) Test 12/03/20 16:28 12/03/20 20:11 12/04/20 07:19 Glucose (Fingerstick) 345 mg/dL (70-99) 211 mg/dL (70-99) 295 mg/dL (70-99) Laboratory Tests Test 12/03/20 08:55 12/03/20 10:31 12/03/20 16:28 12/03/20 20:11 White Blood Count 12.3 x10^3/uL (4.0-11.0) Red Blood Count 4.25 x10^6/uL (4.30-5.70) Hemoglobin 12.3 g/dL (13.0-17.5) Hematocrit 37.5 % (39.0-53.0) Mean Corpuscular Volume 88 fL (79-100) Mean Corpuscular Hemoglobin 29 pg (25-35) Mean Corpuscular Hemoglobin Concent 33 g/dL (31-37) Red Cell Distribution Width 14.2 % (11.5-14.5) Platelet Count 234 x10^3/uL (140-400) Neutrophils (%) (Auto) 92 % (31-73) Lymphocytes (%) (Auto) 5 % (24-48) Monocytes (%) (Auto) 3 % (0-9) Eosinophils (%) (Auto) 0 % (0-3) Basophils (%) (Auto) 0 % (0-3) Neutrophils # (Auto) 11.3 x10^3/uL (1.8-7.7) Lymphocytes # (Auto) 0.6 x10^3/uL (1.0-4.8) Monocytes # (Auto) 0.4 x10^3/uL (0.0-1.1) Eosinophils # (Auto) 0.0 x10^3/uL (0.0-0.7) Basophils # (Auto) 0.0 x10^3/uL (0.0-0.2) Glucose (Fingerstick) 277 mg/dL (70-99) 345 mg/dL (70-99) 211 mg/dL (70-99) Test 12/04/20 07:19 Glucose (Fingerstick) 295 mg/dL (70-99) Medications Active Scripts Medications Dose Route/Sig Max Daily Dose Days Date Category Lotensin Hct 10-12.5 mg Tablet (Benazepril/Hydrochlorothiazide) 1 Each Tablet 1 Each PO DAILY 12/02/20 Reported Sertraline Hcl 25 Mg Tablet 25 Mg PO DAILY 12/02/20 Reported Aspirin Ec (Aspirin) 81 Mg Tablet.dr 1 Tab PO DAILY 12/02/20 Reported Preservision Lutein Softgel (Vit C/Jase Ac/Lut/Copper/Znox) 1 Each Capsule 1 Cap PO DAILY 30 12/02/20 Reported Duoneb 0.5-3(2.5) Mg/3 Ml (Albuterol/Ipratropium) 3 Ml Ampul.neb 3 Ml NEB QID 12/02/20 Reported Metformin Hcl 500 Mg Tablet 1,000 Mg PO BIDWMEALS 12/02/20 Reported Comments CTA chest IMPRESSION: No evidence of pulmonary embolus. Emphysema with likely chronic findings as described, however, superimposed infection is not entirely excluded on the right. Borderline and mildly enlarged paratracheal lymph nodes, possibly reactive. Nonspecific 6 mm nodular opacity in the right lower lobe and multiple sub-4 mm pulmonary nodules as described, recommend follow-up CT chest in 6 months to evaluate for stability/resolution of the larger nodular opacity. Impression . IMPRESSION: 1. Abnormal CT chest revealing right-sided infiltrate compatible with pneumonia, suspect gram-negative, possibly gram-positive. 2. Leukocytosis secondary to above. 3. Chronic respiratory failure. 4. Acute exacerbation of chronic obstructive pulmonary disease. 5. Elevated D-dimer, nonspecific. CT angiogram was negative for pulmonary embolism. 6. Mild lymphadenopathy in the paratracheal region along with a 6-mm nodular opacity in the right lower lobe. 7. Weight loss. 8. Hypertension. 9. Type 2 diabetes. 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 Plan . Updated 12/04/2020 Continue supplemental oxygen to keep oxygen saturations greater than 92%, currently on 2 L nasal cannula Continue antibiotics with Rocephin and azithromycin Bronchodilators Continue steroids with taper, will change to p.o. CTA of chest negative for PE, recommend repeat CT chest in 2 months Physical therapy/Occupational Therapy, out of bed as tolerated DVT/GI prophylaxis: Lovenox PLAN 12/03/20 Continue supplemental oxygen to keep sats above 92% Continue ABX: rocephin and azithro NEBS Continue steroids CTA chest Neg for PE, reviewed ---Repeat CT chest in 2 months. DVT/GI prophylaxis;lovenox PLAN: 12/02/20 1. We will continue current support with IV antibiotics. 2. Nebulized treatments. 3. Steroids. 4. Repeat CT chest in 2 months. 5. Follow up with PCP regarding significant weight loss. There is no evidence of malignancy in the chest at this time. 6. DVT, GI prophylaxis. ZAKI SHOOK MD Dec 04, 2020 08:02
[2020-12-04] MEDS: MULTIVITAMIN I-VITE TABLET. PO SCH (08:30)
[2020-12-04] MEDS: LACTOBACILLUS RHAMNOSUS GG 1 CAPSULE. PO SCH ×2 (08:30→23:14)
[2020-12-04] MEDS: ASPIRIN ENTERIC COATED 81 MG TABLET.DR. PO SCH (08:30)
[2020-12-04] MEDS: SERTRALINE 25 MG TABLET. PO SCH (08:30)
[2020-12-04] MEDS: LISINOPRIL 10 MG TABLET PO SCH (08:31)
[2020-12-04] MEDS: methylPREDNISolone SOD SUCC PF 125 MG/2 ML VIAL. IV SCH (08:31)
[2020-12-04] MEDS: hydroCHLOROthiazide 12.5 MG CAPSULE PO SCH (08:31)
[2020-12-04] MEDS: INSULIN LISPRO 300 UNITS/3 ML VIAL. SQ SCH ×6 (08:41→16:42)
[2020-12-04 11:00] VITALS: BP 119/60
--- NOTE | 2020-12-04 12:51 | PDOC ---
[employer] PROGRESS NOTE Date of Service DOS: DATE: 12/04/20 TIME: 12:50 Chief Complaint Chief Complaint sepsis on admit, improved, right-sided pneumonia, suspect gram-negative - broad abx x2, nebs COPD, chronic hypercarbic respiratory failure with acute bronchitis, will geet PULM consult, nebs, steroids, malnutrition, weight loss, htn Dm2 History of Present Illness History of Present Illness feels imrpoved, str better, sitting on edge of bed still tachycardia needs PT adn OT, is weak, he would like to go home with home health, possible soon, Vitals/I&O Vitals/I&O: Vital Signs Date Time Temp Pulse Resp B/P (MAP) Pulse Ox O2 Delivery O2 Flow Rate FiO2 12/04/20 11:37 Nasal Cannula 2.0 12/04/20 11:00 97.6 99 19 119/60 (79) 96 97.6 I & O 12/03/20 12/03/20 12/04/20 15:00 23:00 07:00 Intake Total 400 ml 200 ml Balance 400 ml 200 ml Physical Exam General: Alert, Oriented X3, Cooperative, No acute distress Lungs: Clear Abdomen: Normal bowel sounds, Soft Extremities: No edema Skin: No rashes, No significant lesion Labs Labs: Laboratory Tests Test 12/03/20 16:28 12/03/20 20:11 12/04/20 07:19 12/04/20 11:27 Glucose (Fingerstick) 345 mg/dL (70-99) 211 mg/dL (70-99) 295 mg/dL (70-99) 272 mg/dL (70-99) Assessment and Plan Assessmemt and Plan Problems Medical Problems: (1) Chest pain Status: Acute Comment Review of Relevant I have reviewed the following items abby (where applicable) has been applied. Medications: Current Medications Medications (Trade) Dose Ordered Sig/Yuval Route PRN Reason Start Time Stop Time Status Last Admin Dose Admin Lactobacillus Rhamnosus (Culturelle) 1 cap BID PO 12/03/20 21:00 12/04/20 08:30 Insulin Human Lispro (HumaLOG) 8 units TIDAC SQ 12/04/20 11:30 12/04/20 11:50 Justifications for Admission Other Justification LULA ALFARO MD Dec 04, 2020 12:51
[2020-12-04] MEDS: cefTRIAXone IV Push 1 GM VIAL. IVP SCH (14:04)
[2020-12-04] MEDS: AZITHROMYCIN 500 MG in IV NORMAL SALINE 250ML 250 ML IV SCH (14:06)
[2020-12-04 14:51] VITALS: BP 118/62
[2020-12-04] MEDS: ENOXAPARIN 40 MG/0.4 ML SYRINGE. SQ SCH (16:52)
[2020-12-04 19:00] VITALS: BP 116/64
[2020-12-04] MEDS ORDERED: INSULIN GLARGINE SYRINGE. SQ SCH (21:00)
[2020-12-04 22:40] VITALS: BP 115/60
[2020-12-05 02:50] VITALS: BP 125/53
[2020-12-05 05:58] LABS: BASO % 0 % (0-3); EOS % 0 % (0-3); HEMOGLOBIN 11.2 g/dL (13.0-17.5); LYMPH # 1.1 x10^3/uL (1.0-4.8); LYMPH % 7 % (24-48); MEAN CORPUSCULAR HEMOGLOBIN 29 pg (25-35); MEAN CORPUSCULAR HGB CONC 33 g/dL (31-37); MEAN CORPUSCULAR VOLUME 88 fL (79-100); MONO # 1.3 x10^3/uL (0.0-1.1); MONO % 8 % (0-9); NEUT # 14.8 x10^3/uL (1.8-7.7); NEUT % 86 % (31-73); PLATELET COUNT 248 x10^3/uL (140-400); RED BLOOD COUNT 3.86 x10^6/uL (4.30-5.70); RED CELL DISTRIBUTION WIDTH 14.1 % (11.5-14.5); WHITE BLOOD COUNT 17.3 x10^3/uL (4.0-11.0)
[2020-12-05 06:25] LABS: ALBUMIN 3.1 g/dL (3.4-5.0); ALBUMIN/GLOBULIN RATIO 1.1 (1.0-1.7); CALCIUM 8.8 mg/dL (8.5-10.1); GFR 70.8; TOTAL BILIRUBIN 0.3 mg/dL (0.2-1.0)
[2020-12-05 07:00] VITALS: BP 92/59
[2020-12-05] MEDS: IPRATRPIUM/ALBUTEROL 0.5/2.5MG 3 ML NEBU. NEB SCH ×2 (07:32→11:28)
[2020-12-05] MEDS: ASPIRIN ENTERIC COATED 81 MG TABLET.DR. PO SCH (08:20)
[2020-12-05] MEDS: SERTRALINE 25 MG TABLET. PO SCH (08:21)
[2020-12-05] MEDS: MULTIVITAMIN I-VITE TABLET. PO SCH (08:21)
[2020-12-05] MEDS: INSULIN LISPRO 300 UNITS/3 ML VIAL. SQ SCH ×4 (08:29→12:00)
[2020-12-05] MEDS ORDERED: predniSONE 10 MG TABLET PO SCH (09:00)
[2020-12-05] MEDS ORDERED: CEFDINIR 300 MG CAPSULE PO SCH (09:00)
[2020-12-05] MEDS: LISINOPRIL 10 MG TABLET PO SCH (09:00)
[2020-12-05] MEDS: hydroCHLOROthiazide 12.5 MG CAPSULE PO SCH (09:00)
[2020-12-05] MEDS ORDERED: INSU100V35 SQ (09:59)
[2020-12-05] MEDS ORDERED: INSU100V8 SQ (09:59)
--- NOTE | 2020-12-05 10:01 | SNU/HH DC ---
DISCHARGE WITH HOME HEALTH DISCHARGE INFORMATION: Final Diagnosis: Problems Medical Problems: (1) Chest pain Status: Acute Condition on Discharge: Stable CODE STATUS: Code Status: Full HOME HEALTH: Face to Face: I certify this patient is under my care and that I, or a nurse practitioner or physician's recreation assistant working with me, had a face to face encounter that meets the physician face to face encounter requirements with this patient on []. Medical Complications: Pneumonia Care Home For: Assess & Educate Safety RN For Eval/Treatment: Yes Physical Therapy For: Evalulation/Treatment Occupational Therapy For: Evaluation/Treatment Home Health Aide For: Self-care POST OFFICE CLERK For: Community Resources Pt Meets Homebound Status: Unsteady balance w/ amb, POST DISCHARGE ORDERS: DIET AFTER DISCHARGE: Cardiac CERTIFICATION STATEMENT: Certification Statement: Certification Statement: Based on the above finding, I certify that this patient is confined to the home and needs intermittent shelter care, physical therapy and/or speech therapy, or continues to need occupational therapy.~ This patient is under my care, and I have initiated the establishment of the plan of care.~ This patient will be followed by myself or a community physician who will periodically review the plan of care. Home Meds Active Scripts Insulin Lispro (Admelog) 100 Unit/1 Ml Vial, 8 UNITS SQ TIDAC for dm for 14 Days, #1 EACH Prov:JORDYN NUÑEZ III DO 12/05/20 Insulin Glargine,Hum.rec.anlog (LANTUS) 100 Unit/1 Ml Vial, 13 UNIT SQ QHS for dm for 14 Days, #1 EACH Prov:JORDYN NUÑEZ III DO 12/05/20 Reported Medications Benazepril/Hydrochlorothiazide (Lotensin Hct 10-12.5 mg Tablet) 1 Each Tablet, 1 EACH PO DAILY for hypertension, TAB 12/02/20 Sertraline Hcl (SERTRALINE HCL) 25 Mg Tablet, 25 MG PO DAILY for ANTI- DEPRESSANT, TAB 0 Refills 12/02/20 Aspirin (ASPIRIN EC) 81 Mg Tablet.dr, 1 TAB PO DAILY for antiplatelet, #90 TAB 3 Refills 12/02/20 Vit C/Jase Ac/Lut/Copper/Znox (PRESERVISION LUTEIN SOFTGEL) 1 Each Capsule, 1 CAP PO DAILY for supplement for 30 Days, #30 CAP 0 Refills 12/02/20 Ipratropium/Albuterol Sulfate (DUONEB 0.5-3(2.5) MG/3 ML) 3 Ml Ampul.neb, 3 ML NEB QID for copd, EACH 12/02/20 Metformin Hcl (METFORMIN HCL) 500 Mg Tablet, 1000 MG PO BIDWMEALS for ANTI- DIABETIC, TAB 0 Refills 12/02/20 Discontinued Reported Medications Albuterol Sulfate (ALBUTEROL SULFATE CONC NEB SOLN) 2.5 Mg/0.5 Ml Vial.neb, 2.5 MG NEB for FOR ASTHMA, EACH 0 Refills 12/02/20 JORDYN NUÑEZ III DO Dec 05, 2020 10:01
--- NOTE | 2020-12-05 10:13 | PDOC ---
[employer] PROGRESS NOTE Date of Service DOS: DATE: 12/05/20 TIME: 10:13 Chief Complaint Chief Complaint sepsis on admit, improved, right-sided pneumonia, suspect gram-negative - broad abx x2, nebs COPD, chronic hypercarbic respiratory failure with acute bronchitis, will geet PULM consult, nebs, steroids, malnutrition, weight loss, htn Dm2 History of Present Illness History of Present Illness 12/05/2020 Patient seen and examined He seems to be at his baseline Discussed with RN and case management and pulmonary medicine We will go ahead and discharge with home health please see dictation feels imrpoved, str better, sitting on edge of bed still tachycardia needs PT adn OT, is weak, he would like to go home with home health, possible soon, Vitals/I&O Vitals/I&O: Vital Signs Date Time Temp Pulse Resp B/P (MAP) Pulse Ox O2 Delivery O2 Flow Rate FiO2 12/05/20 07:32 98 Nasal Cannula 2.0 12/05/20 07:00 97.8 84 18 92/59 (70) 97.8 I & O 12/04/20 12/04/20 12/05/20 15:00 23:00 07:00 Intake Total 200 ml 300 ml Balance 200 ml 300 ml Physical Exam General: Alert, Oriented X3, Cooperative, No acute distress Lungs: Clear Abdomen: Normal bowel sounds, Soft Extremities: No edema Skin: No rashes, No significant lesion Labs Labs: Laboratory Tests Test 12/04/20 11:27 12/04/20 16:30 12/04/20 18:54 12/05/20 04:40 Glucose (Fingerstick) 272 mg/dL (70-99) 125 mg/dL (70-99) 270 mg/dL (70-99) White Blood Count 17.3 x10^3/uL (4.0-11.0) Red Blood Count 3.86 x10^6/uL (4.30-5.70) Hemoglobin 11.2 g/dL (13.0-17.5) Hematocrit 34.0 % (39.0-53.0) Mean Corpuscular Volume 88 fL (79-100) Mean Corpuscular Hemoglobin 29 pg (25-35) Mean Corpuscular Hemoglobin Concent 33 g/dL (31-37) Red Cell Distribution Width 14.1 % (11.5-14.5) Platelet Count 248 x10^3/uL (140-400) Neutrophils (%) (Auto) 86 % (31-73) Lymphocytes (%) (Auto) 7 % (24-48) Monocytes (%) (Auto) 8 % (0-9) Eosinophils (%) (Auto) 0 % (0-3) Basophils (%) (Auto) 0 % (0-3) Neutrophils # (Auto) 14.8 x10^3/uL (1.8-7.7) Lymphocytes # (Auto) 1.1 x10^3/uL (1.0-4.8) Monocytes # (Auto) 1.3 x10^3/uL (0.0-1.1) Eosinophils # (Auto) 0.0 x10^3/uL (0.0-0.7) Basophils # (Auto) 0.0 x10^3/uL (0.0-0.2) Sodium Level 137 mmol/L (136-145) Potassium Level 4.0 mmol/L (3.5-5.1) Chloride Level 97 mmol/L (98-107) Carbon Dioxide Level 35 mmol/L (21-32) Anion Gap 5 (6-14) Blood Urea Nitrogen 42 mg/dL (8-26) Creatinine 1.0 mg/dL (0.7-1.3) Estimated GFR (Cockcroft-Gault) 70.8 BUN/Creatinine Ratio 42 (6-20) Glucose Level 204 mg/dL (70-99) Calcium Level 8.8 mg/dL (8.5-10.1) Total Bilirubin 0.3 mg/dL (0.2-1.0) Aspartate Amino Transf (AST/SGOT) 23 U/L (15-37) Alanine Aminotransferase (ALT/SGPT) 25 U/L (16-63) Alkaline Phosphatase 73 U/L (46-116) Total Protein 6.0 g/dL (6.4-8.2) Albumin 3.1 g/dL (3.4-5.0) Albumin/Globulin Ratio 1.1 (1.0-1.7) Test 12/05/20 06:53 Glucose (Fingerstick) 168 mg/dL (70-99) Assessment and Plan Assessmemt and Plan Problems Medical Problems: (1) Chest pain Status: Acute Comment Review of Relevant I have reviewed the following items abby (where applicable) has been applied. Medications: Current Medications Medications (Trade) Dose Ordered Sig/Yuval Route PRN Reason Start Time Stop Time Status Last Admin Dose Admin Prednisone (Prednisone) 40 mg DAILY PO 12/05/20 09:00 12/05/20 08:21 Insulin Human Lispro (HumaLOG) 8 units TIDAC SQ 12/04/20 11:30 12/05/20 08:34 Insulin Glargine (Lantus Syringe) 13 unit QHS SQ 12/04/20 21:00 12/04/20 23:17 Cefdinir (Omnicef) 300 mg BID PO 12/05/20 09:00 12/05/20 08:20 Justifications for Admission Other Justification JORDYN NUÑEZ III DO Dec 05, 2020 10:13
--- NOTE | 2020-12-05 10:13 | PDOC ---
PULMONARY PROGRESS NOTES DATE: 12/05/20 TIME: 10:13 Subjective Pt. is resting on 2 liters NC States he is feeling wonderful Denies any shortness of breath or cough sitting edge of bed enjoying breakfast no overnight events Vitals Vital Signs Date Time Temp Pulse Resp B/P (MAP) Pulse Ox O2 Delivery O2 Flow Rate FiO2 12/05/20 07:32 98 Nasal Cannula 2.0 12/05/20 07:00 97.8 84 18 92/59 (70) 97.8 ROS: No Nausea, No Chest Pain, No Abdominal Pain, No Increase Cough General: Alert, Oriented X4 Lungs: Clear Cardiovascular: S1 Abdomen: Soft Neuro Exam: Alert Skin: Warm Labs Laboratory Tests Test 12/03/20 10:31 12/03/20 16:28 12/03/20 20:11 12/04/20 07:19 Glucose (Fingerstick) 277 mg/dL (70-99) 345 mg/dL (70-99) 211 mg/dL (70-99) 295 mg/dL (70-99) Test 12/04/20 11:27 12/04/20 16:30 12/04/20 18:54 12/05/20 04:40 Glucose (Fingerstick) 272 mg/dL (70-99) 125 mg/dL (70-99) 270 mg/dL (70-99) White Blood Count 17.3 x10^3/uL (4.0-11.0) Red Blood Count 3.86 x10^6/uL (4.30-5.70) Hemoglobin 11.2 g/dL (13.0-17.5) Hematocrit 34.0 % (39.0-53.0) Mean Corpuscular Volume 88 fL (79-100) Mean Corpuscular Hemoglobin 29 pg (25-35) Mean Corpuscular Hemoglobin Concent 33 g/dL (31-37) Red Cell Distribution Width 14.1 % (11.5-14.5) Platelet Count 248 x10^3/uL (140-400) Neutrophils (%) (Auto) 86 % (31-73) Lymphocytes (%) (Auto) 7 % (24-48) Monocytes (%) (Auto) 8 % (0-9) Eosinophils (%) (Auto) 0 % (0-3) Basophils (%) (Auto) 0 % (0-3) Neutrophils # (Auto) 14.8 x10^3/uL (1.8-7.7) Lymphocytes # (Auto) 1.1 x10^3/uL (1.0-4.8) Monocytes # (Auto) 1.3 x10^3/uL (0.0-1.1) Eosinophils # (Auto) 0.0 x10^3/uL (0.0-0.7) Basophils # (Auto) 0.0 x10^3/uL (0.0-0.2) Sodium Level 137 mmol/L (136-145) Potassium Level 4.0 mmol/L (3.5-5.1) Chloride Level 97 mmol/L (98-107) Carbon Dioxide Level 35 mmol/L (21-32) Anion Gap 5 (6-14) Blood Urea Nitrogen 42 mg/dL (8-26) Creatinine 1.0 mg/dL (0.7-1.3) Estimated GFR (Cockcroft-Gault) 70.8 BUN/Creatinine Ratio 42 (6-20) Glucose Level 204 mg/dL (70-99) Calcium Level 8.8 mg/dL (8.5-10.1) Total Bilirubin 0.3 mg/dL (0.2-1.0) Aspartate Amino Transf (AST/SGOT) 23 U/L (15-37) Alanine Aminotransferase (ALT/SGPT) 25 U/L (16-63) Alkaline Phosphatase 73 U/L (46-116) Total Protein 6.0 g/dL (6.4-8.2) Albumin 3.1 g/dL (3.4-5.0) Albumin/Globulin Ratio 1.1 (1.0-1.7) Test 12/05/20 06:53 Glucose (Fingerstick) 168 mg/dL (70-99) Laboratory Tests Test 12/04/20 11:27 12/04/20 16:30 12/04/20 18:54 12/05/20 04:40 Glucose (Fingerstick) 272 mg/dL (70-99) 125 mg/dL (70-99) 270 mg/dL (70-99) White Blood Count 17.3 x10^3/uL (4.0-11.0) Red Blood Count 3.86 x10^6/uL (4.30-5.70) Hemoglobin 11.2 g/dL (13.0-17.5) Hematocrit 34.0 % (39.0-53.0) Mean Corpuscular Volume 88 fL (79-100) Mean Corpuscular Hemoglobin 29 pg (25-35) Mean Corpuscular Hemoglobin Concent 33 g/dL (31-37) Red Cell Distribution Width 14.1 % (11.5-14.5) Platelet Count 248 x10^3/uL (140-400) Neutrophils (%) (Auto) 86 % (31-73) Lymphocytes (%) (Auto) 7 % (24-48) Monocytes (%) (Auto) 8 % (0-9) Eosinophils (%) (Auto) 0 % (0-3) Basophils (%) (Auto) 0 % (0-3) Neutrophils # (Auto) 14.8 x10^3/uL (1.8-7.7) Lymphocytes # (Auto) 1.1 x10^3/uL (1.0-4.8) Monocytes # (Auto) 1.3 x10^3/uL (0.0-1.1) Eosinophils # (Auto) 0.0 x10^3/uL (0.0-0.7) Basophils # (Auto) 0.0 x10^3/uL (0.0-0.2) Sodium Level 137 mmol/L (136-145) Potassium Level 4.0 mmol/L (3.5-5.1) Chloride Level 97 mmol/L (98-107) Carbon Dioxide Level 35 mmol/L (21-32) Anion Gap 5 (6-14) Blood Urea Nitrogen 42 mg/dL (8-26) Creatinine 1.0 mg/dL (0.7-1.3) Estimated GFR (Cockcroft-Gault) 70.8 BUN/Creatinine Ratio 42 (6-20) Glucose Level 204 mg/dL (70-99) Calcium Level 8.8 mg/dL (8.5-10.1) Total Bilirubin 0.3 mg/dL (0.2-1.0) Aspartate Amino Transf (AST/SGOT) 23 U/L (15-37) Alanine Aminotransferase (ALT/SGPT) 25 U/L (16-63) Alkaline Phosphatase 73 U/L (46-116) Total Protein 6.0 g/dL (6.4-8.2) Albumin 3.1 g/dL (3.4-5.0) Albumin/Globulin Ratio 1.1 (1.0-1.7) Test 12/05/20 06:53 Glucose (Fingerstick) 168 mg/dL (70-99) Medications Active Scripts Medications Dose Route/Sig Max Daily Dose Days Date Category Lotensin Hct 10-12.5 mg Tablet (Benazepril/Hydrochlorothiazide) 1 Each Tablet 1 Each PO DAILY 12/02/20 Reported Sertraline Hcl 25 Mg Tablet 25 Mg PO DAILY 12/02/20 Reported Aspirin Ec (Aspirin) 81 Mg Tablet.dr 1 Tab PO DAILY 12/02/20 Reported Preservision Lutein Softgel (Vit C/Jase Ac/Lut/Copper/Znox) 1 Each Capsule 1 Cap PO DAILY 30 12/02/20 Reported Duoneb 0.5-3(2.5) Mg/3 Ml (Albuterol/Ipratropium) 3 Ml Ampul.neb 3 Ml NEB QID 12/02/20 Reported Metformin Hcl 500 Mg Tablet 1,000 Mg PO BIDWMEALS 12/02/20 Reported Comments CTA chest IMPRESSION: No evidence of pulmonary embolus. Emphysema with likely chronic findings as described, however, superimposed infe ction is not entirely excluded on the right. Borderline and mildly enlarged paratracheal lymph nodes, possibly reactive. Nonspecific 6 mm nodular opacity in the right lower lobe and multiple sub-4 mm pulmonary nodules as described, recommend follow-up CT chest in 6 months to evaluate for stability/resolution of the larger nodular opacity. Impression . IMPRESSION: 1. Abnormal CT chest revealing right-sided infiltrate compatible with pneumonia, suspect gram-negative, possibly gram-positive. 2. Leukocytosis secondary to above. 3. Chronic respiratory failure. 4. Acute exacerbation of chronic obstructive pulmonary disease. 5. Elevated D-dimer, nonspecific. CT angiogram was negative for pulmonary embolism. 6. Mild lymphadenopathy in the paratracheal region along with a 6-mm nodular opacity in the right lower lobe. 7. Weight loss. 8. Hypertension. 9. Type 2 diabetes. 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 Plan . Updated 12/04/2020 Continue supplemental oxygen to keep oxygen saturations greater than 92%, currently on 2 L nasal cannula Continue antibiotics with Rocephin and azithromycin Bronchodilators Continue steroids with taper, will change to p.o. CTA of chest negative for PE, recommend repeat CT chest in 2 months Physical therapy/Occupational Therapy, out of bed as tolerated DVT/GI prophylaxis: Lovenox PLAN 12/03/20 Continue supplemental oxygen to keep sats above 92% Continue ABX: rocephin and azithro NEBS Continue steroids CTA chest Neg for PE, reviewed ---Repeat CT chest in 2 months. DVT/GI prophylaxis;lovenox PLAN: 12/02/20 1. We will continue current support with IV antibiotics. 2. Nebulized treatments. 3. Steroids. 4. Repeat CT chest in 2 months. 5. Follow up with PCP regarding significant weight loss. There is no evidence of malignancy in the chest at this time. 6. DVT, GI prophylaxis. ZAKI SHOOK MD Dec 05, 2020 10:13
--- NOTE | 2020-12-05 10:23 | NUR ---
CHARLEY following. Discussed with RN, pt from home with , Rochelle (uses oxygen at home), ada diet. Therapy recommending home. CHARLEY spoke with pt's , she does not have a preference of provider. Referral faxed to [facility] - awaiting acceptance decision. Discharge home today. CHARLEY will continue to follow. Addendum: 12/05/20 at 1215 by FRANCOIS WHITEHEAD Pt accepted with [facility]. RN notified.
[2020-12-05 11:00] VITALS: BP 97/41
--- NOTE | 2020-12-05 11:25 | DS ---
DATE OF DISCHARGE: 12/05/2020 ADMISSION DIAGNOSES: Pneumonia, sepsis, respiratory failure, and chronic obstructive pulmonary disease. DISCHARGE DIAGNOSES: Resolving pneumonia, resolving respiratory failure, resolving sepsis, resolving chronic obstructive pulmonary disease, hypertension, diabetes, resolving leukocytosis, weight loss, tobacco dependence in remission. CONSULTS: Pulmonary Medicine. PROCEDURES: None. HOSPITAL COURSE: The patient is a pleasant middle-aged male who presented with respiratory failure. It was multifactorial including COPD and pneumonia. He was admitted. We gave him IV antibiotics, steroids, breathing treatments, and oxygen. We consulted Pulmonary Medicine. Today, I saw him and examined him. He is doing well. He is at his baseline. He wants to go home. I left prescriptions for antibiotics and steroids and we are going to arrange home health, physical therapy and occupational therapy. DISPOSITION: Home with home health. ACTIVITY: As tolerated. DIET: Low sodium. MEDICATIONS: Medrol Dosepak, cefdinir 300 p.o. b.i.d., aspirin 81 a day, Lotensin/hydrochlorothiazide 10/12.5 one a day, DuoNebs, metformin 1000 b.i.d., sertraline 25 a day, vitamins. TOTAL TIME: 34 minutes. DAIANA/JODY DR: aMndy TID: [id number]
[2020-12-05] MEDS: LACTOBACILLUS RHAMNOSUS GG 1 CAPSULE. PO SCH (12:02)
--- NOTE | 2020-12-05 14:40 | NUR ---
Discharge Note: JENS LEO [address] Discharge instructions and discharge home medications reviewed with Patient and a copy given. All questions have been answered and understanding verbalized. The following instructions and handouts were given: Pt informed to follow up with his PCP in 1 week. Discontinued IV line and telemetry. Patient discharged to Home with Home Health
== END 2020-12-05 14:39 | disposition home health service (06) | DRG 871 ==
LOC: ER 03:09 → 6 SOUTH 08:06
PROVIDERS: ADMIT Internal Medicine; ATTEND Internal Medicine
DX: A41.9 Sepsis, unspecified organism (principal); J18.9 Pneumonia, unspecified organism; E46 Unspecified protein-calorie malnutrition; J44.0 Chronic obstructive pulmonary disease with (acute) lower respiratory infection; J44.1 Chronic obstructive pulmonary disease with (acute) exacerbation; J96.12 Chronic respiratory failure with hypercapnia; E11.9 Type 2 diabetes mellitus without complications; R63.4 Abnormal weight loss; F17.201 Nicotine dependence, unspecified, in remission; I10 Essential (primary) hypertension; J20.9 Acute bronchitis, unspecified; Z68.21 Body mass index [BMI] 21.0-21.9, adult; Z79.899 Other long term (current) drug therapy
CPT/HCPCS: 36415; 71045; 71275; 80048; 80053; 81001; 82962; 83690; 83735; 83880; 84484; 85007; 85025; 85379; 85610; 87040; 87449; 87804; 93005; 94640; 94760; 96365; J0456; J0696; J1650; J1815; J1956; J2930; J7050; J7512; Q9967; 99285-25; G0378; J7030; Q0163